=== PATIENT | female | born 1995 | race Caucasian/White ===

== ENCOUNTER 2017-05-17 21:18 | Emergency (ER) | payer OTHER ==
[2017-05-17 22:34] LABS: BASOPHIL % 0.6 % (0-2); PLATELET COUNT 245 x10^3mcL (130-400)
[2017-05-17 22:36] LABS: RED CELL DISTRIBUTION WIDTH 14.7 % (11.5-14.5)
[2017-05-18 02:17] VITALS: BP 100/57
== END 2017-05-18 02:17 | disposition home or self-care (01) ==
LOC: ED 21:18
PROVIDERS: Emergency Medicine Emergency Medical Services
DX: R42 Dizziness and giddiness (principal); R07.89 Other chest pain
CPT/HCPCS: 36415; 85378; Q9967